=== PATIENT | male | born 1940 | race Caucasian/White ===

== ENCOUNTER 2020-08-16 14:52 | Outpatient (CLI) | payer OTHER | END 2020-08-16 15:02 | disposition home or self-care (01) | LOC: LAB 14:52 | DX: H16.142 Punctate keratitis, left eye (principal) ==

== ENCOUNTER 2020-08-24 14:19 | Outpatient (CLI) | payer OTHER | END 2020-08-24 14:27 | disposition home or self-care (01) | LOC: LAB 14:19 | DX: H16.142 Punctate keratitis, left eye (principal) ==